=== PATIENT | female | born 1960 | race Two or more races ===

== ENCOUNTER 2021-04-08 09:51 | Emergency (ER) | payer BC, OTHER ==
[~2021-04-08] VITALS: Ht 160 cm; Wt 85.7 kg
[2021-04-08 11:32] LABS: Basophils # (auto) 0 10 ^3/uL (0-0.2); Basophils % (auto) 0.4 % (0.0-2.0); Eosinophils # (auto) 0.2 10 ^3/uL (0-0.8); Eosinophils % (auto) 2.6 % (0.0-7.0); Hematocrit 39.2 % (36.0-46.0); Hemoglobin 13.5 g/dL (12.2-16.2); Lymphocytes # (auto) 1.5 10 ^3/uL (0.4-5.4); Lymphocytes % (auto) 23.1 % (10.0-50.0); Mean Corpuscular Hemoglobin 31.2 pg (28.0-32.0); Mean Corpuscular Hgb Conc. 34.6 g/dL (32.0-36.0); Mean Corpuscular Volume 90.4 fL (80.0-100.0); Monocytes # (auto) 0.2 10 ^3/uL (0-1.3); Monocytes % (auto) 2.6 % (0.0-12.0); Neutrophils # (auto) 4.5 10 ^3/uL (1.6-8.6); Neutrophils % (auto) 71.3 % (37.0-80.0); Nucleated Red Blood Cells % 0.1 %; Red Blood Cells 4.33 10^6/uL (4.0-5.20); Red Cell Distribution Width 12.8 % (11.8-14.3); White Blood Cell 6.4 10^3/uL (4.4-10.8)
[2021-04-08 11:49] LABS: Potassium 4.3 mmol/L (3.5-5.1)
[2021-04-08 12:10] LABS: Albumin 3.8 g/dL (3.4-5.0); Bilirubin, Total 0.4 mg/dL (0.2-1.0); Calcium 9.4 mg/dL (8.5-10.1); Total Protein 7.6 g/dL (6.4-8.2)
[2021-04-08] MEDS ORDERED: SODIUM CHLORIDE 0.9% 1,000 ML IV ONE (12:30)
[2021-04-08] MEDS ORDERED: ASPirin 81 mg TAB PO ONE (12:30)
[2021-04-08 12:59] LABS: Magnesium 2.2 mg/dL (1.6-2.6)
[2021-04-08 16:25] LABS: Urine Bacteria NONE SEEN /hpf (None Seen); Urine Blood Negative /uL (Negative); Urine Mucus FEW (None Seen); Urine WBC <1 /hpf (0 - 5)
[2021-04-08 17:52] VITALS: BP 143/60
== END 2021-04-08 17:54 | disposition home or self-care (01) ==
LOC: ER 09:51
DX: R07.89 Other chest pain (principal); R10.13 Epigastric pain; I10 Essential (primary) hypertension
CPT/HCPCS: 36415; 71046; 76705; 80053; 81001; 83690; 83735; 84443; 84484; 85025; 93005

== ENCOUNTER → 2022-07-12 | Emergency (ER) | payer BC, MEDICAID | END | disposition left against medical advice (07) | LOC: ER 12:08 | DX: R53.1 Weakness (principal); Z53.21 Procedure and treatment not carried out due to patient leaving prior to being seen by health care provider ==